=== PATIENT | male | born 1960 | race Caucasian/White ===

== ENCOUNTER 2016-12-11 16:44 | Emergency (ER) | payer OTHER ==
[2016-12-11 17:10] VITALS: BP 144/84; PULSE 82; RESP 18; TEMP 97.9
[2016-12-11] MEDS ORDERED: PROPARACAINE 0.5% OPHTH DROPS 15 ML BTL RIGHT EYE STA (17:16)
--- NOTE | 2016-12-11 17:54 | ED ---
Eye Problem HPI - General Chief complaint: Eye Problems Stated complaint: Eye Injury Time Seen by Provider: 12/11/16 17:02 Source: patient Mode of arrival: ambulatory Limitations: no limitations - History of Present Illness Initial comments: 56-year-old male patient presents to emergency department today for evaluation of right eye discomfort. Patient states that this morning around 0900 he was fishing, states that he caught a fish and when he went to pull it out of the water the sinker weight flew back and hit him in the right eye. Patient states that initially the pain was intense however did improve to a point where he had no pain. Patient states that later in the day he did develop some discomfort and some bruising around the eye. Patient denies any scratching or burning pain. Denies any tearing or drainage. He denies any visual difficulties. Denies any headache, neck pain, nausea, or vomiting. Denies any loss of consciousness when this occurred. Denies any injuries or other physical symptoms. Patient was seen at [facility] and was diagnosed with a corneal abrasion, his tetanus was updated at that time. They sent him here for further evaluation. - Related Data Allergies Allergy/AdvReac Type Severity Reaction Status Date / Time No Known Allergies Allergy Verified 12/11/16 17:10 Review of Systems ROS Statement: Those systems with pertinent positive or pertinent negative responses have been documented in the HPI. ROS Other: All systems not noted in ROS Statement are negative. Past Medical History Past Medical History: Coronary Artery Disease (CAD), Hyperlipidemia, Hypertension, Thyroid Disorder History of Any Multi-Drug Resistant Organisms: MRSA Past Surgical History: Heart Catheterization, Orthopedic Surgery Additional Past Surgical History / Comment(s): thyroidectomy 2015, Past Psychological History: No Psychological Hx Reported Smoking Status: Former smoker Past Alcohol Use History: Rare Past Drug Use History: None Reported General Exam Limitations: no limitations General appearance: alert, in no apparent distress Head exam: Present: atraumatic, normocephalic, normal inspection Eye exam: Present: PERRL, EOMI, other (Right periorbital ecchymosis. Right upper lid swelling. Hughes lamp exam with fluorescein stain performed to right eye. Vertical conjunctival abrasion noted right above the cornea to the 12 o' clock position.. No drainage from the right eye. Extraocular movements are intact. No periorbital tenderness.). Absent: normal appearance, scleral icterus, conjunctival injection, periorbital swelling, periorbital tenderness Pupils: Present: normal accommodation ENT exam: Present: normal exam, normal oropharynx, mucous membranes moist Neck exam: Present: normal inspection, full ROM. Absent: tenderness, meningismus, lymphadenopathy Respiratory exam: Present: normal lung sounds bilaterally. Absent: respiratory distress, wheezes, rales, rhonchi, stridor Cardiovascular Exam: Present: regular rate, normal rhythm, normal heart sounds. Absent: systolic murmur, diastolic murmur, rubs, gallop, clicks Neurological exam: Present: alert, oriented X3, CN II-XII intact Psychiatric exam: Present: normal affect, normal mood Skin exam: Present: warm, dry, intact, normal color. Absent: rash Course Vital Signs 12/11/16 17:01 Temperature 97.9 F Pulse Rate 82 Respiratory 18 Rate Blood Pressure 144/84 O2 Sat by Pulse 96 Oximetry Medical Decision Making - Medical Decision Making 56-year-old male patient presents to emergency department today for evaluation of right eye injury. Patient was seen at [facility] and sent over for further evaluation. Hughes lamp examination with fluorescein stain was performed and did show a conjunctival abrasion above the cornea at 12:00. No evidence of globe rupture. Patient visual acuity was performed and was satisfactory. Patient will be discharged with tobramycin drops to be applied 4 times daily to the right eye. Patient instructed to follow up with ophthalmology on Wednesday for recheck. Patient instructed to return immediately for any new, worsening, or concerning symptoms. Disposition Clinical Impression: Eye pain Disposition: HOME SELF-CARE Condition: Good Instructions: Black Eye (ED) Additional Instructions: Follow-up with rig superintendent. Apply 1 drop of antibiotics to right eye 4 times daily. Return immediately for any new, worsening, or concerning symptoms. Referrals: Heath Eden DO [Primary Care Provider] - 1-2 days Scarlet Agrawal MD [STAFF PHYSICIAN] - 1-2 days Time of Disposition: 17:57
[2016-12-11] MEDS ORDERED: ERYTHROMYCIN 5 MG/GM OPHTH OINT 3.5 GM TUBE RIGHT EYE STA (17:56)
[2016-12-11] MEDS ORDERED: TOBRAMYCIN 0.3% OPHTH DROPS 5 ML BTL RIGHT EYE STA (18:05)
== END 2016-12-11 18:15 | disposition home or self-care (01) ==
LOC: EC 16:44
DX: H57.11 Ocular pain, right eye (principal); Z87.891 Personal history of nicotine dependence
CPT/HCPCS: 99283